=== PATIENT | female | born 1940 | race African-American/Black ===

== ENCOUNTER 2017-01-09 14:32 | Emergency (ER) | payer MEDICARE, OTHER ==
[~2017-01-09] VITALS: Ht 165.1 cm; Wt 80.5 kg
[~2017-01-09 14:32] MED LIST: AMLO10TA4 PO; ASPI-1158 PO; HYDR25TA PO; VALS80TA2 PO
[2017-01-09] MEDS: KETOROLAC 60MG/2ML VIAL IM ONE (15:45)
[2017-01-09] MEDS: METHOCARBAMOL 500MG TABLET PO ONE (15:45)
[2017-01-09] MEDS: HYDROCODONE/ACETAMINOPHEN 5/325MG TABLET PO ONE (15:45)
[2017-01-09 19:25] VITALS: BP 160/74
== END 2017-01-09 19:30 | disposition home or self-care (01) ==
LOC: ER 14:32
DX: M54.41 Lumbago with sciatica, right side (principal); G89.29 Other chronic pain; I10 Essential (primary) hypertension; Z85.3 Personal history of malignant neoplasm of breast; Z79.82 Long term (current) use of aspirin; Z88.2 Allergy status to sulfonamides
CPT/HCPCS: 96372; 99283; J1885

== ENCOUNTER 2017-02-20 10:11 | Emergency (ER) | payer MEDICARE, OTHER ==
[~2017-02-20] VITALS: Ht 165.1 cm; Wt 79.0 kg
[2017-02-20] MEDS ORDERED: TRAMADOL 50MG TABLET PO ONE (13:15)
[2017-02-20 15:49] VITALS: BP 135/72
== END 2017-02-20 15:51 | disposition home or self-care (01) ==
LOC: ER 10:36
DX: M25.551 Pain in right hip (principal); I10 Essential (primary) hypertension; Z79.82 Long term (current) use of aspirin; Z88.2 Allergy status to sulfonamides; W19.XXXA Unspecified fall, initial encounter; Y93.89 Activity, other specified; Y92.480 Sidewalk as the place of occurrence of the external cause; Y99.8 Other external cause status
CPT/HCPCS: 72100; 73502; 73552; 99284